=== PATIENT | male | born 1975 | race Caucasian/White ===

== ENCOUNTER 2019-03-08 22:03 | Inpatient (IN) | payer OTHER ==
[2019-03-08] MEDS ORDERED: POTASSIUM CHLORIDE 100 ML IVPB (23:30)
[2019-03-08] MEDS ORDERED: ACETAMINOPHEN 325 MG TAB PO (23:30)
[2019-03-09] MEDS: HYDROCODONE/APAP (5/325) TAB PO ×5 (00:03→23:02)
[2019-03-09] MEDS: LORAZEPAM 2 MG INJ IV ×4 (00:04→23:02)
[2019-03-09] MEDS ORDERED: POTASSIUM CHLORIDE (SR) 20 MEQ TAB PO (00:47)
[2019-03-09] MEDS: POTASSIUM CHLORIDE (SR) 20 MEQ TAB PO ×3 (01:21→23:54)
[2019-03-09] MEDS: PANTOPRAZOLE (EC) 40 MG TAB PO (05:25)
[2019-03-09 07:25] LABS: ADD MAN DIFF? NO
[2019-03-09 07:27] LABS: BASOPHILS % 0.6 % (0.0-2.0); EOSINOPHILS % 0.6 % (0.0-7.0); HEMATOCRIT 34.2 % (42.0-52.0); HEMOGLOBIN 11.6 g/dl (14.0-18.0); LYMPHOCYTES # 1.7 10^3/ul (0.8-2.9); MEAN CORPUSCULAR HEMOGLOBIN 30.9 pg (29.0-33.0); MEAN CORPUSCULAR HGB CONC 33.9 g/dl (32.0-37.0); MEAN CORPUSCULAR VOLUME 91.2 fl (82.0-101.0); MEAN PLATELET VOLUME 9.3 fl (7.4-10.4); MONOCYTES % 13.9 % (0.0-11.0); NEUTROPHIL # 4.1 10^3/ul (1.6-7.5); NEUTROPHILS % 59.3 % (39.0-77.0); PLATELET COUNT 264 10^3/UL (140-415); RED BLOOD COUNT 3.75 10^6/ul (4.70-6.10); RED CELL DISTRIBUTION WIDTH 17.9 % (11.5-14.5)
[2019-03-09 07:47] LABS: ANION GAP 13 (5-13); BLOOD UREA NITROGEN 3 mg/dl (7-20); CALCIUM 8.2 mg/dl (8.4-10.2); CARBON DIOXIDE 31 mmol/L (21-31); CHLORIDE 98 mmol/L (97-110); CREATININE 0.43 mg/dl (0.61-1.24); Estimated GFR > 60 mL/min (>60); GLUCOSE 95 mg/dl (70-220); SODIUM 142 mmol/L (135-144)
[2019-03-09 07:55] LABS: POTASSIUM 2.8 mmol/L (3.5-5.1)
[2019-03-09] MEDS ORDERED: MULTIVITAMINS 10 ML, THIAMINE 100 MG, FOLIC ACID 1 MG in SOD CHLORIDE 0.9% 1,000 ML IVPB (09:00)
[2019-03-09] MEDS: NICOTINE (21 MG/24 HR) PATCH TRANSDERM (09:48)
[2019-03-09] MEDS: CHLORDIAZEPOXIDE 25 MG CAP PO ×3 (09:48→20:54)
[2019-03-09] MEDS: THIAMINE 100 MG TAB PO (09:49)
[2019-03-09] MEDS: FOLIC ACID 1 MG TAB PO (09:49)
[2019-03-09] MEDS: POTASSIUM CHLORIDE 100 ML IVPB ×4 (09:49→23:00)
[2019-03-09] MEDS: MULTIVITAMINS 10 ML, THIAMINE 100 MG, FOLIC ACID 1 MG in SOD CHLORIDE 0.9% 1,000 ML IVPB (10:10)
[2019-03-09 15:58] LABS: ALANINE AMINOTRANSFERASE 22 IU/L (13-69); ALBUMIN 3.9 g/dl (3.3-4.9); ALKALINE PHOSPHATASE 114 IU/L (42-121); ASPARTATE AMINO TRANSFERASE 39 IU/L (15-46); BILIRUBIN,INDIRECT 1.2 mg/dl (0-1.1); BILIRUBIN,TOTAL 1.2 mg/dl (0.2-1.3); TOTAL PROTEIN 6.7 g/dl (6.1-8.1)
[2019-03-09 15:59] LABS: INR 0.96; PROTIME 12.9 Sec (11.9-14.9)
[2019-03-09 16:03] LABS: PHOSPHORUS 2.7 mg/dl (2.5-4.9)
[2019-03-09] MEDS: ONDANSETRON 4 MG INJ IV (16:26)
[2019-03-09 16:56] LABS: POTASSIUM 3.6 mmol/L (3.5-5.1)
[2019-03-09] MEDS: MAGNESIUM OXIDE 400 MG TAB PO (17:44)
[2019-03-09] MEDS: MAGNESIUM SULFATE 4 GM/100 ML 100 ML IVPB (18:44)
[2019-03-09 20:53] LABS: AMPHETAMINE/METHAMPHETAMINE Negative (NEGATIVE); BARBITURATES Negative (NEGATIVE); CANNABINOIDS Negative (NEGATIVE); COCAINE Negative (NEGATIVE); OPIATES Positive (NEGATIVE)
[2019-03-09 20:57] LABS: BENZODIAZEPINES Positive (NEGATIVE)
[2019-03-09] MEDS: traZODone 100 MG TAB PO (23:54)
[2019-03-10] MEDS: LORAZEPAM 2 MG INJ IV ×4 (02:14→17:19)
[2019-03-10] MEDS: PANTOPRAZOLE (EC) 40 MG TAB PO (05:46)
[2019-03-10] MEDS: HYDROCODONE/APAP (5/325) TAB PO ×2 (05:47→12:54)
[2019-03-10] MEDS: NICOTINE (21 MG/24 HR) PATCH TRANSDERM (09:11)
[2019-03-10] MEDS: MAGNESIUM OXIDE 400 MG TAB PO (09:12)
[2019-03-10] MEDS: CHLORDIAZEPOXIDE 25 MG CAP PO ×2 (09:12→12:54)
[2019-03-10] MEDS: THIAMINE 100 MG TAB PO (09:14)
[2019-03-10] MEDS: FOLIC ACID 1 MG TAB PO (09:14)
[2019-03-10] MEDS: MULTIVITAMINS 10 ML, THIAMINE 100 MG, FOLIC ACID 1 MG in SOD CHLORIDE 0.9% 1,000 ML IVPB (09:15)
[2019-03-10 10:50] LABS: MAGNESIUM 2.5 mg/dl (1.7-2.5)
[2019-03-10 10:50] LABS: ANION GAP 8 (5-13); BLOOD UREA NITROGEN 6 mg/dl (7-20); CALCIUM 8.9 mg/dl (8.4-10.2); CARBON DIOXIDE 27 mmol/L (21-31); CHLORIDE 99 mmol/L (97-110); CREATININE 0.54 mg/dl (0.61-1.24); Estimated GFR > 60 mL/min (>60); GLUCOSE 135 mg/dl (70-220); POTASSIUM 4.2 mmol/L (3.5-5.1); SODIUM 134 mmol/L (135-144)
== END 2019-03-10 19:00 | disposition left against medical advice (07) | DRG 894 ==
LOC: TEL 22:03
DX: F10.239 Alcohol dependence with withdrawal, unspecified (principal); G40.509 Epileptic seizures related to external causes, not intractable, without status epilepticus; E87.6 Hypokalemia; F17.200 Nicotine dependence, unspecified, uncomplicated; S42.001A Fracture of unspecified part of right clavicle, initial encounter for closed fracture; I10 Essential (primary) hypertension; S70.01XA Contusion of right hip, initial encounter; S40.011A Contusion of right shoulder, initial encounter; W18.30XA Fall on same level, unspecified, initial encounter; Z59.0 Homelessness
CPT/HCPCS: 70450; 73030-RT; 73510; 80048; 80076; 80307; 83735; 84100; 84132; 85025; 85610; 87081